=== PATIENT | male | born 1980 | race Two or more races ===

== ENCOUNTER 2018-11-18 09:49 | Outpatient (CLI) | payer BC ==
[2018-11-18] MEDS ORDERED: None at this time (10:48)
== END 2018-11-18 23:59 | disposition home or self-care (01) ==
LOC: STAR 09:49
PROVIDERS: ATTEND Surgery
DX: Z02.9 Encounter for administrative examinations, unspecified (principal)

== ENCOUNTER 2018-11-29 09:55 | Day surgery (SDC) | payer BC ==
[~2018-11-29] VITALS: Ht 167.6 cm; Wt 72.0 kg
[~2018-11-29 09:55] MED LIST: None at this time
[2018-11-29] MEDS ORDERED: LACTATED RINGERS 1,000 ML IV SCH (10:32)
[2018-11-29] MEDS ORDERED: LIDOCAINE-MPF 1%, 2ML INFIL ONE (11:00)
[2018-11-29] MEDS ORDERED: BUPIVACAINE/PF-EPI 0.5% 1:200K ONE (13:25)
[2018-11-29] MEDS ORDERED: MIDAZOLAM 1 MG/ML, 2ML ONE (13:35)
[2018-11-29] MEDS ORDERED: FENTANYL PF 100 MCG/2ML ONE ×2 (13:36→15:08)
[2018-11-29] MEDS ORDERED: DEXAMETHASONE 4 MG/ML, 1ML ONE (13:37)
[2018-11-29] MEDS ORDERED: ONDANSETRON 2MG/ML, 2ML ONE (13:37)
[2018-11-29] MEDS ORDERED: PROPOFOL 10 MG/ML, 20ML ONE (13:37)
[2018-11-29] MEDS ORDERED: METOCLOPRAMIDE 5 MG/ML, 2ML ONE (13:37)
[2018-11-29] MEDS ORDERED: GLYCOPYRROLATE 0.2MG/1ML, 5ML ONE (13:37)
[2018-11-29] MEDS ORDERED: NEOSTIGMINE 1 MG/ML, 10ML ONE (13:37)
[2018-11-29] MEDS ORDERED: BUPIVACAINE/PF-EPI 0.5% 1:200K INFIL ONE (13:37)
[2018-11-29] MEDS ORDERED: ROCURONIUM 10MG/ML,5ML ONE (13:37)
[2018-11-29] MEDS ORDERED: CEFAZOLIN 1,000 MG ONE (13:37)
[2018-11-29] MEDS ORDERED: OXYcodone 5 MG/5 ML ORAL.SOL UDC ONE (15:08)
[2018-11-29] MEDS: FENTANYL PF 100 MCG/2ML IV PRN ×2 (15:11→15:29)
[2018-11-29] MEDS ORDERED: HYDROmorphone 2 MG/ML, 1ML ONE (15:11)
[2018-11-29] MEDS: HYDROmorphone 1 MG/ML, 1ML IV PRN ×3 (15:13→15:36)
[2018-11-29] MEDS ORDERED: MEPERIDINE/PF 25MG/0.5ML IVPush PRN (15:30)
[2018-11-29] MEDS ORDERED: ALBUTEROL SULFATE 2.5 MG/3 ML NPPB PRN (15:30)
[2018-11-29] MEDS ORDERED: KETOROLAC 30 MG/1 ML IV PRN (15:30)
[2018-11-29] MEDS ORDERED: ONDANSETRON 2MG/ML, 2ML IVPush PRN (15:30)
[2018-11-29] MEDS ORDERED: hydrALAzine 20 MG/ML, 1ML IV PRN (15:30)
[2018-11-29] MEDS ORDERED: PROMETHAZINE 25 MG/ML, 1ML IV PRN (15:30)
[2018-11-29] MEDS ORDERED: LABETALOL 5MG/ML, 20ML IV PRN (15:30)
[2018-11-29] MEDS ORDERED: OXYcodone 5 MG/5 ML ORAL.SOL UDC PO PRN (15:30)
[2018-11-29] MEDS ORDERED: METOCLOPRAMIDE 5 MG/ML, 2ML IV PRN (15:30)
== END 2018-11-29 18:15 | disposition home or self-care (01) ==
LOC: OUT 09:55
PROVIDERS: ATTEND Surgery
DX: K40.20 Bilateral inguinal hernia, without obstruction or gangrene, not specified as recurrent (principal); D17.6 Benign lipomatous neoplasm of spermatic cord
CPT/HCPCS: 49650; C1781; J0690; J1100; J1170; J2250; J2405; J2704; J2710; J2765; J3010; J3490; J7120; S2900